=== PATIENT | female | born 1940 | race Caucasian/White ===

== ENCOUNTER → 2024-03-21 14:15 | Outpatient (REF) | payer MEDICARE, SELFPAY | LOC: HWWDC 14:15 | PROVIDERS: ATTENDING PHYSICIAN Family Medicine | DX: Z12.31 Encounter for screening mammogram for malignant neoplasm of breast (principal) | CPT/HCPCS: 77063; 77067 ==

== ENCOUNTER 2024-06-15 06:16 | Day surgery (SDC) | payer MEDICARE, SELFPAY | END 2024-06-15 12:42 | disposition home or self-care (01) | LOC: GI 06:16 | PROVIDERS: ATTENDING PHYSICIAN Specialist | DX: D12.5 Benign neoplasm of sigmoid colon (principal); K57.30 Diverticulosis of large intestine without perforation or abscess without bleeding; K64.8 Other hemorrhoids; Q43.8 Other specified congenital malformations of intestine; K56.2 Volvulus; R19.5 Other fecal abnormalities | CPT/HCPCS: 45385; 45380; 88305 ==